=== PATIENT | male | born 1955 | race Caucasian/White ===

== ENCOUNTER 2020-07-10 15:44 | Outpatient (CLI) | payer MEDICARE, SELFPAY ==
[2020-07-10 16:04] LABS: Basophils Absolute Auto 0.04 K/mm3 (0.00-0.10); Basophils Percent Auto 0.7 % (0.0-1.0); Eosinophils Absolute Auto 0.21 K/mm3 (0.02-0.50); Eosinophils Percent Auto 3.4 % (1.0-6.0); Hematocrit 43.1 % (37.0-46.0); Hemoglobin 14.5 g/dL (12.4-15.3); Immature Granulocyte Absolute 0.01 K/mm3 (0.00-0.00); Immature Granulocyte Percent A 0.2 % (0.0-0.0); Lymphocytes Absolute Auto 2.64 K/mm3 (1.10-4.50); Lymphocytes Percent Auto 43.3 % (18.0-42.0); Mean Corpuscular HGB Conc 33.6 g/dL (32.0-36.0); Mean Corpuscular Hemoglobin 29.7 pg (27.0-31.0); Mean Corpuscular Volume 88.1 fL (78.0-102.0); Mean Platelet Volume 8.7 fl (8.7-11.0); Monocytes Absolute Auto 0.53 K/mm3 (0.10-0.90); Monocytes Percent Auto 8.7 % (2.0-11.0); Neutrophils Absolute Auto 2.7 K/mm3 (1.7-7.2); Neutrophils Percent Auto 43.7 % (50.0-70.0); Platelet Count Result 285 K/mm3 (150-420); Red Blood Count 4.89 M/mm3 (4.70-6.10); Red Cell Distribution Width 12.4 % (11.6-14.4); White Blood Count 6.1 K/mm3 (4.8-10.8)
[2020-07-10 17:12] LABS: Erythrocyte Sedimentation Rate 10 mm/hr (0-20)
[2020-07-10 17:26] LABS: Cholesterol 278 mg/dL (0-200); Ferritin 220 ng/mL (26-388); HDL Direct 70 mg/dL (40-60); Iron 75 ug/dL (65-175); LDL Cholesterol Calculated 173 mg/dL (<130); Percent Iron Saturation 21 % (12-57); Triglycerides 177 mg/dL (0-150); Vitamin B12 510 pg/mL (193-986)
[2020-07-10 17:32] LABS: CRP < 0.5 mg/dL (0.0-0.9)
[2020-07-10 17:33] LABS: Folic Acid > 20.0 ng/mL (8.6->20)
[2020-07-10 17:56] LABS: Thyroid Stimulating Hormone Reflex 2.13 u/IU/mL (0.36-3.74)
[2020-07-16 05:51] LABS: Hepatitis C Signal to Cutoff 0.03 ratio (<1.00); Hepatitis C Virus Antibody Nonreactive (Nonreactive)
[2020-07-17 02:45] LABS: Vitamin D 25 Hydroxy 27 ng/mL (30-100)
== END 2020-07-10 15:45 | disposition home or self-care (01) ==
PROVIDERS: PCP Family Medicine; Visit Provider Family Medicine
DX: R29.898 Other symptoms and signs involving the musculoskeletal system (principal); R03.0 Elevated blood-pressure reading, without diagnosis of hypertension; R53.1 Weakness; Z13.220 Encounter for screening for lipoid disorders; Z13.6 Encounter for screening for cardiovascular disorders; D64.9 Anemia, unspecified; E55.9 Vitamin D deficiency, unspecified
CPT/HCPCS: 36415; 80061; 82306; 82607; 82728; 82746; 83540; 83550; 84443; 85025; 85652; 86140

== ENCOUNTER 2022-04-20 15:25 | Outpatient (CLI) | payer MEDICARE, OTHER, SELFPAY ==
[2022-04-20 15:37] LABS: Basophils Absolute Auto 0.04 K/mm3 (0.00-0.10); Basophils Percent Auto 0.7 % (0.0-1.0); Eosinophils Absolute Auto 0.19 K/mm3 (0.02-0.50); Eosinophils Percent Auto 3.1 % (1.0-6.0); Hematocrit 41.8 % (37.0-46.0); Immature Granulocyte Absolute 0.02 K/mm3 (0.00-0.00); Immature Granulocyte Percent A 0.3 % (0.0-0.0); Lymphocytes Absolute Auto 2.58 K/mm3 (1.10-4.50); Mean Corpuscular HGB Conc 33.5 g/dL (32.0-36.0); Mean Corpuscular Hemoglobin 29.9 pg (27.0-31.0); Mean Corpuscular Volume 89.3 fL (78.0-102.0); Mean Platelet Volume 8.6 fl (8.7-11.0); Monocytes Absolute Auto 0.53 K/mm3 (0.10-0.90); Monocytes Percent Auto 8.6 % (2.0-11.0); Neutrophils Absolute Auto 2.8 K/mm3 (1.7-7.2); Neutrophils Percent Auto 45.3 % (50.0-70.0); Platelet Count Result 266 K/mm3 (150-420); Red Blood Count 4.68 M/mm3 (4.70-6.10); Red Cell Distribution Width 12.6 % (11.6-14.4); White Blood Count 6.1 K/mm3 (4.8-10.8)
[2022-04-20 16:15] LABS: Alanine Aminotransferase 34 U/L (16-63); Alkaline Phosphatase 72 U/L (46-116); Anion Gap 8 mmol/L (8-16); Aspartate Amino Transferase 27 U/L (15-37); Bilirubin,Total 0.6 mg/dL (0.00-1.00); Blood Urea Nitrogen 21 mg/dL (7-18); Calcium 9.1 mg/dL (8.5-10.1); Carbon Dioxide 27 mmol/L (21-32); Chloride 104 mmol/L (98-108); Cholesterol 267 mg/dL (0-200); Estimated Glomerular Filt Rate 58; Glucose 122 mg/dL (70-99); HDL Direct 68 mg/dL (40-60); LDL Cholesterol Calculated 172 mg/dL (<130); Osmolality Calculated 292 mOsm/kg (285-295); Potassium 4.1 mmol/L (3.5-5.1); Sodium 139 mmol/L (136-145); Total Protein 6.9 g/dL (6.4-8.2); Triglycerides 134 mg/dL (0-150)
[2022-04-21 17:32] LABS: Hemoglobin A1C 5.7 % (<5.7)
[2022-04-25 03:25] LABS: Testosterone Free 26.6 pg/mL (46.0-224.0); Testosterone Total 242 ng/dL (250-1100)
== END 2022-04-20 15:26 | disposition home or self-care (01) ==
LOC: CHSLAB 15:27
PROVIDERS: PCP Nurse Practitioner Family; Visit Provider Nurse Practitioner Family
DX: E78.5 Hyperlipidemia, unspecified (principal); R73.01 Impaired fasting glucose; I10 Essential (primary) hypertension; N52.9 Male erectile dysfunction, unspecified
CPT/HCPCS: 36415; 80053; 80061; 83036; 84402; 84403; 85025

== ENCOUNTER 2024-04-06 07:16 | Outpatient (CLI) | payer MEDICARE, SELFPAY ==
[2024-04-06 07:35] LABS: Basophils Absolute Auto 0.02 K/mm3 (0.00-0.10); Basophils Percent Auto 0.4 % (0.0-1.0); Eosinophils Absolute Auto 0.24 K/mm3 (0.02-0.50); Eosinophils Percent Auto 5.2 % (1.0-6.0); Hematocrit 42.7 % (37.0-46.0); Hemoglobin 14.3 g/dL (12.4-15.3); Immature Granulocyte Absolute 0.02 K/mm3 (0.00-0.00); Immature Granulocyte Percent A 0.4 % (0.0-0.0); Lymphocytes Absolute Auto 2.52 K/mm3 (1.10-4.50); Lymphocytes Percent Auto 54.1 % (18.0-42.0); Mean Corpuscular HGB Conc 33.5 g/dL (32-36); Mean Corpuscular Hemoglobin 29.4 pg (27.0-31.0); Mean Corpuscular Volume 87.9 fL (78.0-102.0); Mean Platelet Volume 8.6 fl (8.7-11.0); Monocytes Absolute Auto 0.51 K/mm3 (0.10-0.90); Monocytes Percent Auto 10.9 % (2.0-11.0); Neutrophils Absolute Auto 1.35 K/mm3 (1.70-7.20); Platelet Count Result 288 K/mm3 (150-420); Red Blood Count 4.86 M/mm3 (4.70-6.10); Red Cell Distribution Width 12.7 % (11.6-14.4); White Blood Count 4.7 K/mm3 (4.8-10.8)
[2024-04-06 08:19] LABS: Alanine Aminotransferase 34 U/L (16-63); Albumin Level 3.8 g/dL (3.4-5.0); Alkaline Phosphatase 86 U/L (46-116); Anion Gap 8 mmol/L (4-12); Aspartate Amino Transferase 27 U/L (15-37); Bilirubin,Total 1.1 mg/dL (0.00-1.00); Blood Urea Nitrogen 19 mg/dL (7-18); Calcium 8.8 mg/dL (8.5-10.1); Carbon Dioxide 26 mmol/L (21-32); Chloride 104 mmol/L (98-108); Cholesterol 277 mg/dL (0-200); Estimated Glomerular Filt Rate 60; Glucose 121 mg/dL (70-99); HDL Direct 64 mg/dL (40-60); LDL Cholesterol Calculated 193 mg/dL (<130); Osmolality Calculated 289 mOsm/kg (285-295); Potassium 4.6 mmol/L (3.5-5.1); Sodium 138 mmol/L (136-145); Total Protein 6.8 g/dL (6.4-8.2); Triglycerides 101 mg/dL (0-150)
[2024-04-07 10:58] LABS: Vitamin D 25 Hydroxy 34 ng/mL (30-100)
[2024-04-13 15:44] LABS: Testosterone Free 69.9 pg/mL (30.0-135.0); Testosterone Total 477 ng/dL (250-1100)
== END 2024-04-06 07:17 | disposition home or self-care (01) ==
PROVIDERS: PCP Nurse Practitioner Family; Visit Provider Nurse Practitioner Family
DX: Z13.6 Encounter for screening for cardiovascular disorders (principal); E78.5 Hyperlipidemia, unspecified; R79.89 Other specified abnormal findings of blood chemistry; I10 Essential (primary) hypertension; Z79.899 Other long term (current) drug therapy
CPT/HCPCS: 36415; 80053; 80061; 82306; 84402; 84403; 85025

== ENCOUNTER 2024-11-14 06:54 | Outpatient (CLI) | payer MEDICARE, SELFPAY ==
[2024-11-14 07:17] LABS: Basophils Absolute Auto 0.03 K/mm3 (0.00-0.10); Basophils Percent Auto 0.7 % (0.0-1.0); Eosinophils Percent Auto 4.6 % (1.0-6.0); Hematocrit 41.8 % (37.0-46.0); Hemoglobin 13.5 g/dL (12.4-15.3); Immature Granulocyte Absolute 0.02 K/mm3 (0.00-0.00); Immature Granulocyte Percent A 0.5 % (0.0-0.0); Lymphocytes Percent Auto 54.7 % (18.0-42.0); Mean Corpuscular HGB Conc 32.3 g/dL (32-36); Mean Corpuscular Hemoglobin 29.1 pg (27.0-31.0); Mean Corpuscular Volume 90.1 fL (78.0-102.0); Mean Platelet Volume 8.6 fl (8.7-11.0); Monocytes Absolute Auto 0.47 K/mm3 (0.10-0.90); Monocytes Percent Auto 10.7 % (2.0-11.0); Neutrophils Absolute Auto 1.27 K/mm3 (1.70-7.20); Neutrophils Percent Auto 28.8 % (50.0-70.0); Platelet Count Result 283 K/mm3 (150-420); Red Blood Count 4.64 M/mm3 (4.70-6.10); Red Cell Distribution Width 12.9 % (11.6-14.4); White Blood Count 4.4 K/mm3 (4.8-10.8)
[2024-11-14 07:34] LABS: Alanine Aminotransferase 34 U/L (6-50); Alkaline Phosphatase 69 U/L (38-126); Anion Gap 3 mmol/L (4-12); Aspartate Amino Transferase 43 U/L (17-59); Bilirubin,Total 0.6 mg/dL (0.2-1.3); Blood Urea Nitrogen 16 mg/dL (9-20); Calcium 8.7 mg/dL (8.4-10.2); Carbon Dioxide 26 mmol/L (22-30); Chloride 110 mmol/L (98-107); Cholesterol 248 mg/dL (0-200); Estimated Glomerular Filt Rate > 60; Glucose 115 mg/dL (65-110); HDL Direct 62 mg/dL; LDL Cholesterol Calculated 160 mg/dL (<130); Osmolality Calculated 290 mOsm/kg (285-295); Potassium 4.3 mmol/L (3.4-5.0); Sodium 139 mmol/L (137-145); Total Protein 6.5 g/dL (6.3-8.2); Triglycerides 129 mg/dL (<150)
[2024-11-15 18:04] LABS: Vitamin D 25 Hydroxy 51 ng/mL (30-100)
== END 2024-11-14 06:55 | disposition home or self-care (01) ==
LOC: CHSLAB 06:56
PROVIDERS: PCP Nurse Practitioner Family; Visit Provider Nurse Practitioner Family
DX: I10 Essential (primary) hypertension (principal); Z79.899 Other long term (current) drug therapy; R79.89 Other specified abnormal findings of blood chemistry; Z13.6 Encounter for screening for cardiovascular disorders; E78.5 Hyperlipidemia, unspecified
CPT/HCPCS: 36415; 80053; 80061; 82306; 85025

== ENCOUNTER 2025-01-27 06:40 | Emergency (ER) | payer MEDICARE, OTHER, SELFPAY ==
--- NOTE | ~2025-01-27 | XR_ITS ---
EXAMINATION: XR hip LT 2V w AP pelvis DATE: 01/27/2025 07:24 INDICATION: Worsening left hip pain TECHNIQUE: Anteroposterior view of the pelvis and anteroposterior and frog-leg lateral views of the l eft hip were obtained. COMPARISON: None. FINDINGS: Alignment is normal. No fracture or osteonecrosis. 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 Chondrocalcinosis along the bilateral acetabular labrum. Severe lower lumbar spondylosi s.. IMPRESSION: 1. Chondrocalcinosis and mild osteoarthritis at the bilateral hips. No acute osseous abnormality. 2. Severe lower lumbar spondylosis. Reviewed, dictated and finalized at location A. IMPRESSION: 1. Chondrocalcinosis and mild osteoarthritis at the bilateral hips. No acute os seous abnormality. 2. Severe lower lumbar spondylosis.
[2025-01-27 06:40] VITALS: BP 168/94; PULSE 54; RESP 16; TEMP 36.2; O2SAT 98
--- OUTSIDE RECORDS SUMMARY | 2025-01-27 06:50 | XMS_ITS | Referral Summary ---
Author Organization [facility] Medical Office Building B Address [address] [place] [address] Care Team Providers Care Insurance Billing Specialist Name Role Phone No, Physician Primary Care Provider [phone] Allergies No known active allergies Medications No known medications Active Problems Problem Noted Date Diagnosed Date Mixed conductive and sensori neural hearing loss of left ear with restricted hearing of right ear 01/28/2020 Assessment & Plan (01/28/2020 2:58 PM CDT): CT scan of the Temporal bones Referral to Dr. Perez - Otology based on these findings Avoid ear cleaning techniques Avoid water to ears Continue hearing aids Chronic otorrhea, left 01/10/2020 Assessment & Plan (01/10/2020 2:46 PM CDT): Ciprodex drops to left ear or generic Ciprofloxacin and Dexamethasone ophthalmic drops Follow up in 2 weeks for recheck Consider CT Temporal bone if fluid resolved Avoid ear cleaning techniques Avoid water to ears How to Use Ear Drops discussed and Handout provided Social History Tobacco Use Types Packs/Day Years Used Date Smoking Tobacco: Former Smokeless Tobacco: Never Alcohol Use Standard Drinks/Week Comments Not Currently 0 (1 standard drink = 0.6 oz pur e alcohol) Personal Safety Answer Date Recorded Getting School Help Needed Not on file 09/10 Sex and Gender Information Value Date Recorded Sex Assigned at Not on file Legal Sex Male 8:33 AM CDT Gender Identity Not on file Sexual Orientation Not on file Last Filed Vital Signs Vital Sign Reading Time Taken Comments Blood Pressure 159/85 01/28/2020 2:33 PM CDT Pulse 57 01/28/2020 2:33 PM CDT Temperature 36.3 C (97.3 F) 01/28/2020 2:33 PM CDT Respiratory Rate - - Oxygen Saturation - - Inhaled Oxygen Concentration - - Weight 90.7 kg (200 lb) 01/28/2020 2:33 PM CDT Height 180.3 cm (5' 11) 01/28/2020 2:33 PM CDT Body Mass Index 27.89 01/28/2020 2:33 PM CDT Plan of Treatment Not on file Insurance MEDICARE [facility] Care Teams Insurance Billing Specialist Relationship Specialty Start Date End Date No, Physician PCP - General 01/28/20
--- OUTSIDE RECORDS SUMMARY | 2025-01-27 06:50 | XMS_ITS | Clinical Summary ---
Author Organization [facility] Medical Office Building B Address [address] [place] [address] Care Team Providers Care Costumed Character Name Role Phone No, Physician Primary Care Provider [phone] Allergies No known active allergies Medications No [...] Use Ear Drops discussed and Handout provided Surgical History Surgery Date Site/Laterality Comments TONSILLECTOMY Social History Tobacco Use Types Packs/Day Years [...] on file Sexual Orientation Not on file Obstetrics History Last Filed Vital Signs Vital Sign Reading [...] of Treatment Not on file Insurance MEDICARE [facility] Care Teams Costumed Character Relationship Specialty Start Date End Date No, Physician PCP - General 01/28/20
--- OUTSIDE RECORDS SUMMARY | 2025-01-27 06:50 | XMS_ITS | Encounter Summary ---
Author Organization [facility] Healthcare Address [address] [place] [address] Care Team Providers Care Fisher Trap Name Role Phone No, Physician Primary Care Provider [phone] Encounter Details Date Type Department Care Team (Late st Contact Info) Description 02/08/2020 Telephone [facility] [address] [place] [id number] Kiki Abbott, RT Social History Tobacco Use Types Packs/Day Years Used Date Smoking Tobacco: Former Smokeless Tobacco: Never Alcohol Use Standard Drinks/Week Comments Not Currently 0 (1 standard drink = 0.6 oz pur e alcohol) Sex and Gender Information Value Date Recorded Sex Assigned at Not on file Legal Sex Male 8:33 AM CDT Gender Identity Not on file Sexual Orientation Not on file documented as of this encounter Plan of Treatment Not on file documented as of this encounter Visit Diagnoses Not on filedocumented in this encounter Care Teams Fisher Trap Relationship Specialty Start Date End Date No, Physician PCP - General 01/28/20 documented as of this encounter
--- NOTE | 2025-01-27 06:53 | ED.LOWEXIN ---
HPI - Extremity Injury (Lower) General Chief Complaint: Extremity Injury, Lower <Manuel Mendoza MD - Last Filed: 01/30/25 10:59> Stated Complaint: leg/hip pain <Manuel Mendoza MD - Last Filed: 01/30/25 10:59> Time Seen by Provider: 01/27/25 06:50 <Manuel Mendoza MD - Last Filed: 01/30/25 10:59> Source: patient <Manuel Mendoza MD - Last Filed: 01/30/25 10:59> Mode of arrival: ambulatory <Manuel Mendoza MD - Last Filed: 01/30/25 10:59> Limitations: no limitations <Manuel Mendoza MD - Last Filed: 01/30/25 10:59> History of Present Illness HPI Narrative: 69-year-old male with a history of hypertension, dyslipidemia 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 He had been riding his horse for the past few days and presents with a 1 week history of -- left Thigh/ Hip pain. Pain appears to be worse on abducting the hip. -- Has trouble putting weight on the left lower extremity. No fever or chills. No trauma. no injury except that he has been riding his horse. <Manuel Mendoza MD - Last Filed: 01/30/25 10:59> Injury: Left: hip <Manuel Mendoza MD - Last Filed: 01/30/25 10:59> Severity: severe <Manuel Mendoza MD - Last Filed: 01/30/25 10:59> Relieving factors: nothing <Manuel Mendoza MD - Last Filed: 01/30/25 10:59> Exacerbating factors: weight bearing and movement <Manuel Mendoza MD - Last Filed: 01/30/25 10:59> Context: other ( Recent horse riding) <Manuel Mendoza MD - Last Filed: 01/30/25 10:59> Other symptoms: none <Manuel Mendoza MD - Last Filed: 01/30/25 10:59> Related Data Allergies/Adverse Reactions: Allergies Allergy/AdvReac Type Severity Reaction Status Date / Time No Known Allergies Allergy Verified 01/27/25 06:52 <Manuel Mendoza MD - Last Filed: 01/30/25 10:59> Review of Systems Review of Systems: All systems reviewed & are unremarkable except as noted in HPI and below <Manuel Mendoza MD - Last Filed: 01/30/25 10:59> [facility] Past Medical History Medical History: Medical History TRAMAINE-inhibitor cough Hypertension Low vitamin D level Hyperlipidemia Encounter for lipid screening for cardiovascular disease Weakness Elevated fasting glucose <Manuel Mendoza MD - Last Filed: 01/30/25 10:59> Surgical History Surgical History: Surgical History Hx of tonsillectomy <Manuel Mendoza MD - Last Filed: 01/30/25 10:59> Social History Social History: Social History Smoking status: Never smoker Alcohol intake: current Substance use: never Living arrangements: with family Occupation/Education: occupation Additional occupation/education comments: Vet <Manuel Mendoza MD - Last Filed: 01/30/25 10:59> Exam Narrative: blood pressure of 160/94. Heart rate of 54 <Manuel Mendoza MD - Last Filed: 01/30/25 10:59> Const: General: no acute distress <Manuel Mendoza MD - Last Filed: 01/30/25 10:59> Orientation/consciousness: patient oriented x3 <Manuel Mendoza MD - Last Filed: 01/30/25 10:59> Limitations: no limitations <Manuel Mendoza MD - Last Filed: 01/30/25 10:59> HENMT: Head: normal to inspection <Manuel Mendoza MD - Last Filed: 01/30/25 10:59> Ears: external ears normal <Manuel Mendoza MD - Last Filed: 01/30/25 10:59> Face/Nose/Sinus: Normal external nose present <Manuel Mendoza MD - Last Filed: 01/30/25 10:59> Face and sinus: normal facial exam <Manuel Mendoza MD - Last Filed: 01/30/25 10:59> Mouth: Yes Normal oral and palatal mucosa present <Manuel Mendoza MD - Last Filed: 01/30/25 10:59> Throat: posterior oropharynx normal <Manuel Mendoza MD - Last Filed: 01/30/25 10:59> Eyes: Conjunctivae: conjunctivae normal <Manuel Mendoza MD - Last Filed: 01/30/25 10:59> Pupils: Equal, round and reactive pupils present <Manuel Mendoza MD - Last Filed: 01/30/25 10:59> EOM: EOMs intact bilaterally <Manuel Mendoza MD - Last Filed: 01/30/25 10:59> Direct Ophthalmoscopy: no photophobia <Manuel Mendoza MD - Last Filed: 01/30/25 10:59> Neck: Neck: normal visual inspection and no lymphadenopathy <Manuel Mendoza MD - Last Filed: 01/30/25 10:59> Chest: Chest palpation & inspection: normal inspection of the chest <Manuel Mendoza MD - Last Filed: 01/30/25 10:59> Resp: Effort & Inspection: normal respiratory effort <Manuel Mendoza MD - Last Filed: 01/30/25 10:59> Cardio: Rate: regular rate <Manuel Mendoza MD - Last Filed: 01/30/25 10:59> Rhythm: regular rhythm <Manuel Mendoza MD - Last Filed: 01/30/25 10:59> GI: GI Palp: Yes Soft to palpation <Manuel Mendoza MD - Last Filed: 01/30/25 10:59> Auscultation: normal bowel sounds <Manuel Mendoza MD - Last Filed: 01/30/25 10:59> Other: no tenderness/ rigidity /rebound. <Manuel Mendoza MD - Last Filed: 01/30/25 10:59> : General: Yes no CVA tenderness <Manuel Mendoza MD - Last Filed: 01/30/25 10:59> Back/Spine/Pelvis: Back: no CVA tenderness <Manuel Mendoza MD - Last Filed: 01/30/25 10:59> Other: No spinal tenderness. No tenderness over sacroiliac joint. <Manuel Mendoza MD - Last Filed: 01/30/25 10:59> Skin: General skin exam: normal color <Manuel Mendoza MD - Last Filed: 01/30/25 10:59> Rashes: no rashes <Manuel Mendoza MD - Last Filed: 01/30/25 10:59> Wounds: no wounds <Manuel Mendoza MD - Last Filed: 01/30/25 10:59> Neuro: General: patient oriented x3, moves all extremities, no meningeal signs, no focal motor deficits and CN's II-XI intact bilaterally <Manuel Mendoza MD - Last Filed: 01/30/25 10:59> Cranial nerves: Yes Nystagmus not present <Manuel Mendoza MD - Last Filed: 01/30/25 10:59> Speech: normal speech <Manuel Mendoza MD - Last Filed: 01/30/25 10:59> Gait exam (Neuro): Normal gait present <Manuel Mendoza MD - Last Filed: 01/30/25 10:59> Extrem: General: normal to inspection <Manuel Mendoza MD - Last Filed: 01/30/25 10:59> Other: Tenderness over left lateral hip. Pain on abduction of left hip. SLR is negative. <Manuel Mendoza MD - Last Filed: 01/30/25 10:59> Psych: Mental Status: mental status grossly normal <Manuel Mendoza MD - Last Filed: 01/30/25 10:59> Affect: normal affect <Manuel Mendoza MD - Last Filed: 01/30/25 10:59> Attitude: cooperative <Manuel Mendoza MD - Last Filed: 01/30/25 10:59> Course Course Emergency Course: Left hip pain-- tenderness over the left lateral hip Suggestive of trochanteric bursitis, tense iliotibial band versus hip arthritis. Patient has a history of sciatica, but currently has a negative SLR. <Manuel Mendoza MD - Last Filed: 01/30/25 10:59> Vital Signs Vital signs: Vital Signs Temperature 36.2 C L 01/27/25 06:40 Pulse Rate 54 L 01/27/25 06:40 Respiratory Rate 16 01/27/25 06:40 Blood Pressure 168/94 H 01/27/25 06:40 Pulse Oximetry 98 01/27/25 06:40 Oxygen Delivery Room Air 01/27/25 06:40 Temperature 36.2 C L 01/27/25 06:40 Pulse Rate 77 01/27/25 08:21 Respiratory Rate 18 01/27/25 08:21 Blood Pressure 155/100 H 01/27/25 08:21 Pulse Oximetry 97 01/27/25 08:21 Oxygen Delivery Room Air 01/27/25 08:21 <Manuel Mendoza MD - Last Filed: 01/30/25 10:59> Vital Signs Temperature 36.2 C L 01/27/25 06:40 Pulse Rate 54 L 01/27/25 06:40 Respiratory Rate 16 01/27/25 06:40 Blood Pressure 168/94 H 01/27/25 06:40 Pulse Oximetry 98 01/27/25 06:40 Oxygen Delivery Room Air 01/27/25 06:40 Temperature 36.2 C L 01/27/25 06:40 Pulse Rate 77 01/27/25 08:21 Respiratory Rate 18 01/27/25 08:21 Blood Pressure 155/100 H 01/27/25 08:21 Pulse Oximetry 97 01/27/25 08:21 Oxygen Delivery Room Air 01/27/25 08:21 <Donnie Jane MD - Last Filed: 01/27/25 08:21> MDM - Extremity Injury (Lower) MDM Narrative Medical decision making narrative: On my examination and discussion the patient has a left groin strain. We will use ibuprofen and Tylenol. We will use prednisone 40 mg daily for 3 days. We discussed that he has no history of DVTs or any sedentary lifestyle. 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 No groin numbness or urinary or stool changes. X-ray left hip was negative for acute process and chronic changes appreciated. <Donnie Jane MD - Last Filed: 01/27/25 08:21> Differential Diagnosis Differential diagnosis: Likely fracture of hip <Manuel Mendoza MD - Last Filed: 01/30/25 10:59> Discharge Plan Discharge Clinical Impression: Groin strain <Manuel Mendoza MD - Last Filed: 01/30/25 10:59> Patient Disposition: Home <Manuel Mendoza MD - Last Filed: 01/30/25 10:59> Condition: Stable <Manuel Mendoza MD - Last Filed: 01/30/25 10:59> Instructions: Groin Strain (ED), Groin Pain (ED) <Manuel Mendoza MD - Last Filed: 01/30/25 10:59> Additional Instructions: Please follow-up with the primary doctor in the next week. Ibuprofen and Tylenol as needed for pain. Use prednisone 40 mg daily for 3 days. <Manuel Mendoza MD - Last Filed: 01/30/25 10:59> Patient Language: Yoruba <Manuel Mendoza MD - Last Filed: 01/30/25 10:59> Prescriptions: No Action losartan 50 mg tablet 50 mg PO DAILY Qty: 30 5RF azelastine 137 mcg (0.1 %) aerosol,spray 2 spray intranasal Q12H Qty: 30 0RF Rx Instructions: administer into each nostril <Manuel Mendoza MD - Last Filed: 01/30/25 10:59> Follow-up/Referrals: Amanda Watson CONTACT LENS INSPECTOR [Primary Care Provider] - <Manuel Mendoza MD - Last Filed: 01/30/25 10:59> Time of Disposition: 08:17 <Manuel Mendoza MD - Last Filed: 01/30/25 10:59> 08:17 <Donnie Jane MD - Last Filed: 01/27/25 08:21>
--- OUTSIDE RECORDS SUMMARY | 2025-01-27 07:11 | XMS_ITS | Clinical Summary ---
Author Organization [facility] Medical Office Building B Address [address] [place] [address] Care Team Providers Care Ug Designer Name Role Phone No, Physician Primary Care Provider Allergies No known active allergies Medications No [...] of Treatment Not on file Insurance MEDICARE [facility] Care Teams Ug Designer Relationship Specialty Start Date End Date No, Physician PCP - General 01/28/20
--- OUTSIDE RECORDS SUMMARY | 2025-01-27 07:12 | XMS_ITS | Referral Summary ---
Author Organization [facility] Medical Office Building B Address [address] [place] [address] Care Team Providers Care Nickel Plater Name Role Phone No, Physician Primary Care Provider [phone] Allergies No known active allergies Medications No [...] of Treatment Not on file Insurance MEDICARE [facility] Care Teams Nickel Plater Relationship Specialty Start Date End Date No, Physician PCP - General 01/28/20
--- OUTSIDE RECORDS SUMMARY | 2025-01-27 07:12 | XMS_ITS | Encounter Summary ---
Author Organization [facility] Healthcare Address [address] [place] [address] Care Team Providers Care Agency Recruiter Name Role Phone No, Physician Primary Care Provider [phone] Encounter Details Date Type Department Care Team (Late st Contact Info) Description 02/08/2020 Telephone [facility] [address] [place] [id number] Kiki Abbott, RT Social History Tobacco Use [...] on filedocumented in this encounter Care Teams Agency Recruiter Relationship Specialty Start Date End Date No, Physician PCP - General 01/28/20 documented as of this encounter
[2025-01-27 08:21] VITALS: BP 155/100; PULSE 77; RESP 18; O2SAT 97
== END 2025-01-27 08:21 | disposition home or self-care (01) ==
PROVIDERS: Emergency Provider Emergency Medicine; PCP Nurse Practitioner Family
DX: S39.011A Strain of muscle, fascia and tendon of abdomen, initial encounter (principal); I10 Essential (primary) hypertension; E78.5 Hyperlipidemia, unspecified; X58.XXXA Exposure to other specified factors, initial encounter; Y93.52 Activity, horseback riding
CPT/HCPCS: 73502; 99283

== ENCOUNTER 2025-04-04 09:44 | Outpatient (CLI) | payer MEDICARE, OTHER, SELFPAY ==
--- NOTE | ~2025-04-04 | CT_ITS ---
EXAMINATION: CT abdomen pelvis wo con DATE: 04/04/2025 10:27 INDICATION: Unilateral inguinal hernia without obstruction. TECHNIQUE: Computed tomography (CT) of the abdomen and pelvis was performed without intravenous contrast. Automated exposure control and iterative reconstruction technique were employed. The dose-length product was 461.62 mGy-cm. COMPARISON: None. FINDINGS: The visualized portions of the lung bases are clear without pneumonia or pleural effusion. The heart size is normal. No pericardial effusion. The liver, gallbladder, spleen, pancreas, adrenal glands, and kidneys are normal. There is no urolithiasis. There are bilateral inguinal hernias containing fat. There is old fat necrosis involving an epiploic appendage of sigmoid colon. There are no dilated loops of bowel. The appendix is not visualized. There are no pathologically enlarged lymph nodes. There is no free intraperitoneal fluid. There is severe lumbar spondylosis and moderate thoracic spondylosis. There is moderate right hip osteoarthritis. There is an insufficiency fracture of the lef t superior acetabulum. There is a fracture of superior aspect of left femoral head with bone volume loss. There is a large left hip joint effusion with innumerable loose bodies. IMPRESSION: 1. Bilateral inguinal hernias containing fat. 2. Fractures of the left superior acetabulum and left femoral head. Large left hip joint effusion with loose bodies. Reviewed, dictated and finalized at location E.
--- NOTE | ~2025-04-04 | XR_ITS ---
Clinical history:Pain in left knee EXAM:X-ray knee left 3 views TECHNIQUE:3 images of the left knee were obtained. Comparisons:None available FINDINGS: There is a 2.0 x 1.8 cm ossific density abutting the lateral aspect of the patella. Differential includes avulsion fracture of indeterminate age or osteophyte. Correlate clinically. Severe narrowing of the patellofemoral joint. Mild narrowing of the medial and lateral compartments. Chondrocalcinosis of the medial and lateral compartments. Bones appear osteopenic. No other possible fracture. No dislocation. Vascular calcifications are noted. Soft tissue swelling about the left knee. Small suprapatellar effusion. IMPRESSION: 1.There is a 2.0 x 1.8 cm ossific density abutting the lateral aspect of the patella. Differential includes avulsion fracture of indeterminate age or osteophyte. Correlate clinically. 2. Severe narrowing of the patellofemoral joint. If symptoms persist or worsen, consider a short-term follow-up study or additional imaging for further assessment. Reviewed, dictated and finalized at location Q. IMPRESSION: 1.There is a 2.0 x 1.8 cm ossific density abutting the lateral aspect of the pa tella. Differential includes avulsion fracture of indeterminate age or osteophy te. Correlate clinically. 2. Severe narrowing of the patellofemoral joint. If symptoms persist or worsen, consider a short-term follow-up study or additio nal imaging for further assessment.
--- NOTE | ~2025-04-04 | CT_ITS ---
EXAMINATION: CT hip LT wo con DATE: 04/04/2025 10:27 INDICATION: Unilateral primary osteoarthritis of the left hip TECHNIQUE: High resolution computed tomography (CT) of the left hip was performed without intravenous contrast. Additional sagittal and coronal reconstructions were performed. Automated exposure control and iterative reconstruction technique were employed. The dose-length product was 461.62 mGy-cm. COMPARISON: None FINDINGS: There is severe arthritis at the left hip. There is osteoarthritis with loss of bone stock at the left femoral head along with cortical erosions at the superior left acetabulum. There is moderate left hip joint effusion and/or synovitis with scattered calcific debris. Constellation of findings is concerning for septic arthritis. There is some fragmentation along the superolateral acetabulum consistent with likely secondary pathologic fracture. Moderate osteoarthritis at the left sacroiliac joint. Moderate to severe lower lumbar spondylosis. No free fluid in the visualized pelvis. No pathologically enlarged left pelvic or inguinal lymphadenopathy. IMPRESSION: 1. Constellation of findings suspicious for septic arthritis with ostial lysis involving the femoral head and potentially acetabulum with secondary pathologic fracture with fragmentation of the superolateral left acetabulum. Dr. Rivera discussed these findings with Dr. Brown at 10:45 AM. Reviewed, dictated and finalized at location A.
== END 2025-04-04 09:45 | disposition home or self-care (01) ==
LOC: CHSIMG 09:47
PROVIDERS: PCP Family Medicine; Visit Provider Family Medicine
DX: K40.20 Bilateral inguinal hernia, without obstruction or gangrene, not specified as recurrent (principal); I10 Essential (primary) hypertension; M16.12 Unilateral primary osteoarthritis, left hip; M25.562 Pain in left knee; M89.552 Osteolysis, left thigh; M22.2X2 Patellofemoral disorders, left knee; S32.492A Other specified fracture of left acetabulum, initial encounter for closed fracture; S72.052A Unspecified fracture of head of left femur, initial encounter for closed fracture; M25.452 Effusion, left hip; M24.052 Loose body in left hip; M89.9 Disorder of bone, unspecified
CPT/HCPCS: 73562; 73700; 74176

== ENCOUNTER 2025-04-04 12:30 | Emergency (ER) | payer MEDICARE, OTHER, SELFPAY ==
--- NOTE | ~2025-04-04 | XR_ITS ---
EXAMINATION: XR chest 1V portable COMPARISON: No comparisons available. HISTORY: hip fracture FINDINGS: The lungs are clear, no effusion. No pneumothorax. Heart is normal size. Mediastinal and hilar contours are within normal limits. Bony thorax no acute abnormality. Miscellaneous: None Impression: No acute cardiopulmonary abnormality. Reviewed, dictated and finalized at location P. Impression: No acute cardiopulmonary abnormality.
[2025-04-04 12:41] VITALS: BP 160/80; PULSE 89; RESP 18; TEMP 36.7; O2SAT 100
--- NOTE | 2025-04-04 13:42 | ECG_ITS ---
Test Date: 2025-04-04 13:53:15 Measurements Intervals [place] Rate: 80 P: 58 ND: 136 QRS: 11 QRSD: 88 T: 14 QT: 373 QTc: 431 Interpretive Statements SINUS RHYTHM VOLTAGE CRITERIA FOR LVH BASELINE ARTIFACT- I, III, AVR, AVL, AVF, V1-V6 BORDERLINE ECG No previous ECG available for comparison Electronically Signed On 04-04-2025 14:09:53 CDT by German Levy D.O.
[2025-04-04 13:45] VITALS: BP 165/87; PULSE 91; RESP 19; TEMP 36.7; O2SAT 100
[2025-04-04 13:54] LABS: Hematocrit 41.3 % (42.0-52.0); Hemoglobin 13.4 g/dL (14.0-18.0); Immature Granulocyte Percent A 0.5 % (0-0.5); Lymphocytes Absolute Auto 1.61 K/mm3 (0.9-3.2); Mean Corpuscular HGB Conc 32.4 g/dl (32-36); Mean Corpuscular Hemoglobin 28.1 pg (26-34); Mean Corpuscular Volume 86.6 fl (80-100); Nucleated Red Blood Cells Absolute Auto 0.000 K/mm3 (0.0-0.012); Nucleated Red Blood Cells Perc 0.0 % (0.0-0.2); Platelet Count Result 495 k/mm3 (150-375); Red Blood Count 4.77 M/mm3 (4.6-6.20); White Blood Count 7.4 K/mm3 (4.5-10.0)
[2025-04-04 14:08] LABS: Partial Thromboplastin Time 33.6 Seconds (22.3-36.8)
[2025-04-04 14:28] LABS: Alanine Aminotransferase 29 U/L (6-50); Albumin Level 4.4 g/dL (3.5-5.1); Alkaline Phosphatase 135 U/L (38-126); Anion Gap 11 mmol/L (4-12); Aspartate Amino Transferase 36 U/L (17-59); Bilirubin,Total 0.6 mg/dL (0.2-1.3); Blood Urea Nitrogen 14 mg/dL (9-20); Calcium 9.5 mg/dL (8.4-10.2); Carbon Dioxide 26 mmol/L (22-30); Chloride 99 mmol/L (98-107); Estimated CRCL calculation 70 ml/min; Estimated Glomerular Filt Rate > 60; Glucose 108 mg/dL (65-110); Potassium 3.9 mmol/L (3.4-5.0); Sodium 136 mmol/L (137-145); Total Protein 8.2 g/dL (6.3-8.2)
[2025-04-04 14:32] LABS: CRP 4.3 mg/dL (<1.0)
[2025-04-04 14:34] LABS: Hemoglobin A1C 5.6 % (<5.7)
--- NOTE | 2025-04-04 14:41 | ED_ITS ---
HPI - General Adult General Chief complaint: Extremity Injury, Lower Stated complaint: Sent by PMD for ortho-fx hip Time Seen by Provider: 04/04/25 13:50 History of Present Illness HPI narrative: 69-year-old male presents emergency department for evaluation for persistent left hip pain. Patient reports in December he was working with a horse and was bumped by the horse this caused him to stumble and injured his left hip at that time. Patient does suspected he was having a muscular issue and had sought follow-up. Patient states that he has been having limited ambulation for the past 2 months. Patient did ambulate a few days ago using a cane and states since then the pain has significantly worsened. Patient did have follow-up with his primary care physician outpatient CT scan was ordered and CT scan today does show a fracture of left superior acetabulum and left femoral head. Patient does have a large left hip effusion with loose bodies. Patient denies any specific incident fall or injury since the stumbling from the horse. Patient has no prior history of avascular gross or arthritis. Patient states that the hip has had last flexibility than his right hip. Related Data Allergies Allergy/AdvReac Type Severity Reaction Status Date / Time No Known Allergies Allergy Verified 04/04/25 14:16 Review of Systems 2 Review of Systems: All systems reviewed & are unremarkable except as noted in HPI and below PMFSH Past Medical History Medical History TRAMAINE-inhibitor cough Hypertension Low vitamin D level Hyperlipidemia Encounter for lipid screening for cardiovascular disease Weakness Elevated fasting glucose Surgical History Surgical History Hx of tonsillectomy Social History Social History Smoking status: Never smoker Alcohol intake: current Substance use: never Living arrangements: with family Occupation/Education: occupation Additional occupation/education comments: Vet Exam 2 Narrative: APPEARANCE: Uncomfortable appearing HEAD: normocephalic, atraumatic. EYES: PERRLA/EOMI, conjunctivae clear. NOSE: Normal no drainage EARS:TMS clear with good light reflex. THROAT: Pharynx clear, no exudate. NECK: Supple. No adenopathy, no masses. RESPIRATORY: Airway patent, respirations nonlabored. Clear to auscultation bilaterally, no rales, rhonchi, wheezing. CARDIOVASCULAR: Regular rate and rhythm without murmurs rubs or gallops. ABDOMINAL: Soft, nontender, nondistended, normal bowel sounds MUSCULOSKELETAL: Limited range of motion of the left him NEURO: Alert. Cranial nerves II through XII intact. Grossly intact SKIN: Warm, dry. Normal Color Course Vital Signs Vital signs: Vital Signs Temperature 98.1 F 04/04/25 12:41 Pulse Rate 89 04/04/25 12:41 Respiratory Rate 18 04/04/25 12:41 Blood Pressure 160/80 H 04/04/25 12:41 Pulse Oximetry 100 04/04/25 12:41 Oxygen Delivery Room Air 04/04/25 12:41 Temperature 98.1 F 04/04/25 13:45 Pulse Rate 96 04/04/25 15:25 Respiratory Rate 16 04/04/25 15: Blood Pressure 180/90 H 04/04/25 15:25 Pulse Oximetry 96 04/04/25 15:25 Oxygen Delivery Room Air 04/04/25 13:45 Medical Decision Making [facility] Narrative Medical decision making narrative: 69-year-old male presents emergency department for evaluation for left hip pain. Patient is currently afebrile with no leukocytosis hemoglobin 13.4. Patient has no acute abnormalities on his CMP, patient's CRP is mildly elevated at 4.3. Patient's blood type is A-positive. CT showing the fracture was ordered as outpatient. Chest x-ray shows no acute cardiopulmonary abnormality. Patient was provided IV medication for pain control. Orthopedics was consulted. Orthopedics felt that this was most likely the arthritic joint less likely a fractured hip but the patient does still require a hip replacement. Patient has been able to ambulate and crutches at home. Patient will be provided additional medications for pain control. On re-evaluation patient is able to have passive range of motion of the left hip with no pain. Low concern for septic joint. Patient is currently afebrile with no leukocytosis. Patient does have elevated CRP and ESR but no tenderness to palpation. Patient was comfortable with the plan for outpatient follow-up with Orthopedics. All questions concerns were addressed. Differential Diagnosis Differential Diagnosis: Hip fracture, hip contusion, septic arthritis, arthritis Vital Signs Vital Signs: Vital Signs Temperature 98.1 F 04/04/25 12:41 Pulse Rate 89 04/04/25 12:41 Respiratory Rate 18 04/04/25 12:41 Blood Pressure 160/80 H 04/04/25 12:41 Pulse Oximetry 100 04/04/25 12:41 Oxygen Delivery Room Air 04/04/25 12:41 Temperature 98.1 F 04/04/25 13:45 Pulse Rate 96 04/04/25 15:25 Respiratory Rate 16 04/04/25 15:25 Blood Pressure 180/90 H 04/04/25 15:25 Pulse Oximetry 96 04/04/25 15:25 Oxygen Delivery Room Air 04/04/25 13:45 Lab Data 04/04/25 13:48 04/04/25 13:48 Labs: Lab Results 04/04/25 04/04/25 Range/Units 13:48 14:06 WBC 7.4 (4.5-10.0) K/mm3 RBC 4.77 (4.6-6.20) M/mm3 Hgb 13.4 L (14.0-18.0) g/dL Hct 41.3 L (42.0-52.0) % MCV 86.6 (80-100) fl MCH 28.1 (26-34) pg MCHC 32.4 (32-36) g/dl RDW 11.9 (11.5-14.5) % Plt Count 495 H (150-375) k/mm3 MPV 8.2 (7.4-10.4) fl Immature Gran % (Auto) 0.5 (0-0.5) % Neut % (Auto) 67.2 (45.5-73.1) % Lymph % (Auto) 21.9 (18.3-44.2) % [place] % (Auto) 9.0 H (2.6-8.5) % Eos % (Auto) 1.1 (0-4.4) % Baso % (Auto) 0.3 (0.2-1.2) % Lymph # (Auto) 1.61 (0.9-3.2) K/mm3 [place] # (Auto) 0.7 H (0.1-0.6) K/mm3 Eos # (Auto) 0.1 (0-0.3) K/mm3 Baso # (Auto) 0.0 (0.0-0.1) K/mm3 Abs Immat Gran (auto) 0.04 H (0.00-0.031) K/mm3 Absolute Neuts (auto) 4.9 (1.3-6.7) K/mm3 Absolute Nucleated RBC 0.000 (0.0-0.012) K/mm3 Nucleated RBC % 0.0 (0.0-0.2) % ESR 97 H (0-20) mm/hr PT 13.3 (11.1-14.7) Seconds INR 1.0 APTT 33.6 (22.3-36.8) Seconds Sodium 136 L (137-145) mmol/L Potassium 3.9 (3.4-5.0) mmol/L Chloride 99 (98-107) mmol/L Carbon Dioxide 26 (22-30) mmol/L Anion Gap 11 (4-12) mmol/L BUN 14 (9-20) mg/dL Creatinine 0.90 (0.7-1.3) mg/dL Estim Creat Clear Calc 70 ml/min Estimated GFR > 60 (59 - ) Glucose 108 (65-110) mg/dL Hemoglobin A1c 5.6 (<5.7) % Calcium 9.5 (8.4-10.2) mg/dL Total Bilirubin 0.6 (0.2-1.3) mg/dL AST 36 (17-59) U/L ALT 29 (6-50) U/L Alkaline Phosphatase 135 H (38-126) U/L C-Reactive Protein 4.3 H (<1.0) mg/dL Total Protein 8.2 (6.3-8.2) g/dL Albumin 4.4 (3.5-5.1) g/dL Blood Type A Positive Antibody Screen Negative Discharge Plan Discharge Clinical Impression: Injury of hip, left Patient Disposition: Home Condition: Stable Instructions: Antibiotic Form, Crutch Instructions (ED), Hip Pain (ED) Additional Instructions: Continue to use crutches for non weight-bearing on the left hip. [place] as needed for pain control. Flexeril as needed for muscle spasm. Have close follow-up with Orthopedics in order to schedule the hip replacement. If you have any worsening symptoms then please call or return to the emergency department Patient Language: Belarusian Prescriptions: New cyclobenzaprine 10 mg tablet 10 mg PO BID PRN (Reason: muscle spasm) Qty: 14 0RF hydrocodone-acetaminophen 5-325 mg tablet 1 tablet PO Q12H PRN (Reason: pain) Qty: 14 0RF No Action losartan 50 mg tablet 50 mg PO DAILY Qty: 30 5RF azelastine 137 mcg (0.1 %) aerosol,spray 2 spray intranasal Q12H Qty: 30 0RF Rx Instructions: administer into each nostril Follow-up/Referrals: Rajeev Brown DO [Primary Care Provider, Family Practice] Cory Hussein MD [Physician, Orthopedics]
[2025-04-04] MEDS: HYDROmorphone HCL INJ (*CRX) 1 MG/ML SYR 0.5 MG IV PUSH (14:46)
[2025-04-04 14:52] VITALS: BP 168/83; PULSE 83; RESP 12; O2SAT 100
[2025-04-04 15:25] VITALS: BP 180/90; PULSE 96; RESP 16; O2SAT 96
[2025-04-04 20:22] LABS: INR 1.0; Prothrombin Time 13.3 Seconds (11.1-14.7)
== END 2025-04-04 15:25 | disposition home or self-care (01) ==
PROVIDERS: Orthopaedic Surgery; Student in an Organized Health Care Education/Training Program; Emergency Provider Emergency Medicine; PCP Family Medicine
DX: S79.912A Unspecified injury of left hip, initial encounter (principal); I10 Essential (primary) hypertension; E78.5 Hyperlipidemia, unspecified; R70.0 Elevated erythrocyte sedimentation rate; R79.82 Elevated C-reactive protein (CRP); W55.12XA Struck by horse, initial encounter; W18.39XA Other fall on same level, initial encounter; R94.31 Abnormal electrocardiogram [ECG] [EKG]; Z79.899 Other long term (current) drug therapy
CPT/HCPCS: 36415; 71045; 80053; 83036; 85025; 85610; 85652; 85730; 86140; 86850; 86900; 86901; 93005; 96374; 99284; J1171